=== PATIENT | male | born 1975 | race Caucasian/White ===

== ENCOUNTER 2019-07-13 23:56 | Inpatient (IN) | payer MEDICAID ==
[~2019-07-13] VITALS: Ht 172.7 cm; Wt 79.1 kg
[~2019-07-13 23:56] MED LIST: DOCU-144 PO; HYDR-4011 PO
[2019-07-14] VITALS (21 sets, daily range): BP systolic 130–194; BP diastolic 75–118; PULSE 56–89; RESP 12–27; Ht 172.7 cm; Wt 79.1 kg
[2019-07-14] MEDS ORDERED: ONDANSETRON 4 MG INJ IV STA (00:54)
[2019-07-14] MEDS ORDERED: LIDOCAINE/MYLANTA 40 ML BTL PO STA (00:54)
[2019-07-14] MEDS ORDERED: KETOROLAC 15 MG INJ IV STA (00:54)
[2019-07-14] MEDS ORDERED: SOD CHLORIDE 0.9% 1,000 ML IV STA (00:54)
[2019-07-14] MEDS ORDERED: BELLADONNA/PHENOBARBITAL TAB PO STA (00:54)
[2019-07-14] MEDS ORDERED: PIPER-TAZO 3.375 GM IV (PMX) 100 ML IVPB ONE (02:30)
[2019-07-14] MEDS ORDERED: DOCUSATE SODIUM 100 MG CAP PO PRN (03:00)
[2019-07-14] MEDS ORDERED: ONDANSETRON 4 MG INJ IV PRN ×3 (03:00→17:30)
[2019-07-14] MEDS ORDERED: NACL 0.9% 3 ML SYG IV SCH (03:00)
[2019-07-14] MEDS ORDERED: ACETAMINOPHEN 325 MG TAB PO PRN (03:00)
[2019-07-14] MEDS ORDERED: BISACODYL (EC) 5 MG TAB PO PRN (03:00)
[2019-07-14] MEDS: HYDROmorphONE 0.5 MG/0.5 ML SYG IV PRN ×2 (04:52→23:53)
[2019-07-14] MEDS: SOD CHLORIDE 0.9% 1,000 ML IV SCH ×2 (04:54→15:14)
[2019-07-14] MEDS: PIPER-TAZO 3.375 GM IV (PMX) 100 ML IVPB SCH ×4 (08:18→23:47)
[2019-07-14] MEDS ORDERED: MIDAZOLAM 1 MG/ML 2 ML INJ ONE (15:22)
[2019-07-14] MEDS ORDERED: ROPIVACAINE 0.5 % 30 ML VIAL ONE (15:24)
[2019-07-14] MEDS ORDERED: ONDANSETRON 4 MG INJ ONE (16:59)
[2019-07-14] MEDS ORDERED: KETOROLAC 30 MG INJ ONE (16:59)
[2019-07-14] MEDS ORDERED: PROPOFOL 20 ML ONE (16:59)
[2019-07-14] MEDS ORDERED: ROCURONIUM 50 MG INJ ONE (16:59)
[2019-07-14] MEDS ORDERED: LIDOCAINE 2% (SDV) 5 ML INJ ONE (16:59)
[2019-07-14] MEDS ORDERED: GLYCOPYRROLATE 0.4 MG INJ ONE (17:07)
[2019-07-14] MEDS ORDERED: NEOSTIGMINE 3 MG/3 ML SYRINGE ONE (17:07)
[2019-07-14] MEDS: D5W-0.45 NACL + KCL 20 MEQ 1,000 ML IV SCH ×2 (17:15→18:50)
[2019-07-14] MEDS ORDERED: hydrALAzine 20 MG INJ IV PRN (17:30)
[2019-07-14] MEDS ORDERED: FENTAnyl 50 MCG/ML VIAL IV PRN (17:30)
[2019-07-14] MEDS ORDERED: HYDROmorphONE 1 MG/5 ML IV SYRINGE IV PRN ×2 (17:30)
[2019-07-14] MEDS ORDERED: METOCLOPRAMIDE 10 MG INJ IV PRN (17:30)
[2019-07-14] MEDS ORDERED: DIPHENHYDRAMINE 50 MG INJ IV PRN (17:30)
[2019-07-14] MEDS ORDERED: hydrALAzine 20 MG INJ ONE (17:33)
[2019-07-14] MEDS: MEPERIDINE 25 MG INJ IV PRN ×2 (17:46→18:56)
[2019-07-14] MEDS: KETOROLAC 30 MG INJ IV PRN (18:54)
[2019-07-14] MEDS: FAMOTIDINE 20 MG INJ IV SCH (20:07)
[2019-07-15 02:00] VITALS: BP 111/64; PULSE 70; RESP 18
[2019-07-15] MEDS: D5W-0.45 NACL + KCL 20 MEQ 1,000 ML IV SCH ×2 (03:15→06:18)
[2019-07-15] MEDS: SOD CHLORIDE 0.9% 1,000 ML IV SCH (03:44)
[2019-07-15] MEDS: PIPER-TAZO 3.375 GM IV (PMX) 100 ML IVPB SCH ×2 (06:17→11:42)
[2019-07-15] MEDS: KETOROLAC 30 MG INJ IV PRN ×2 (06:22→12:43)
[2019-07-15] MEDS ORDERED: ENOXAPARIN 40 MG/0.4 ML SYG SC SCH (07:00)
[2019-07-15 07:10] VITALS: BP 106/65; PULSE 65; RESP 18
[2019-07-15] MEDS: FAMOTIDINE 20 MG INJ IV SCH (08:54)
[2019-07-15] MEDS: HYDROmorphONE 0.5 MG/0.5 ML SYG IV PRN (15:47)
== END 2019-07-15 16:31 | disposition home or self-care (01) | DRG 419 ==
LOC: E/R 23:56 → MS1 07-14 02:42
PROVIDERS: ADMIT Family Medicine; ATTEND Family Medicine
PROC: 0FT44ZZ Resection of Gallbladder, Percutaneous Endoscopic Approach (ICD-10-PCS; principal; 2019-07-14 15:00)
DX: K80.12 Calculus of gallbladder with acute and chronic cholecystitis without obstruction (principal)
CPT/HCPCS: 36415; 76705; 80053; 83690; 84484; 85025; 85610; 85730; 88304; 96361; 96374; 96375; J0360; J1170; J1650; J1885; J2175; J2250; J2405; J2543; J2710; J2795; J3010; J3480; J7030